=== PATIENT | female | born 1960 | race Caucasian/White ===

== ENCOUNTER 2018-09-01 10:01 | Outpatient (CLI) ==
--- NOTE | 2018-09-01 10:59 | DI ---
EXAM: Lumbar spine three view HISTORY: Pain COMPARISON: None TECHNIQUE: Three views lumbar spine were performed FINDINGS: Sacroiliac joints intact. Sacral arcuate intact. Vertebral bodies normal height. No fra cture. No subluxation. Small multilevel marginal osteophyte formation. Mild multilevel interverteb ral disc space narrowing. Suggestion of facet arthrosis in the lower spine. Atherosclerotic vascula r calcification. IMPRESSION: Chronic discogenic degenerative disease and facet arthrosis.
--- NOTE | 2018-09-01 11:01 | DI ---
EXAM: Left knee four views HISTORY: Knee pain. FINDINGS: General bone density appears grossly normal. There is tricompartment osteoarthritis which is moderate in the medial compartment and slightly less otherwise. There is no osteochondral fragmen tation or fracture. No joint effusion. IMPRESSION: Tricompartment osteoarthritis more noticeable in the medial compartment.
--- NOTE | 2018-09-01 11:24 | DI ---
EXAM: Right knee four views HISTORY: Pain COMPARISON: None TECHNIQUE: Four views right knee were performed FINDINGS: No fracture or dislocation. Moderate tricompartmental osteoarthritis with joint space narr owing and osteophyte formation. Small joint effusion. IMPRESSION: Moderate tricompartmental osteoarthritis.
--- NOTE | 2018-09-01 13:03 | DI ---
EXAM: RIGHT SHOULDER HISTORY: Shoulder pain FINDINGS: Right shoulder three-view. Bone and joint structures are within normal limits. There is no joint dislocation or fracture identified. Bone density and soft tissues are unremarkable. IMPRESSION: Within normal limits.
--- NOTE | 2018-09-01 13:04 | DI ---
EXAM: Thoracic spine three views HISTORY: Pain COMPARISON: None TECHNIQUE: Three views thoracic spine were performed FINDINGS: Vertebral bodies normal height. No fracture. No subluxation. Mild multilevel chronic di scogenic degenerative disease with intervertebral disc space narrowing and marginal osteophyte format ion. IMPRESSION: Mild chronic discogenic degenerative disease.
--- NOTE | 2018-09-01 13:05 | DI ---
EXAM: LEFT SHOULDER HISTORY: Shoulder pain FINDINGS: Left shoulder three-view. Bone and joint structures are within normal limits. There is n o joint dislocation or fracture identified. Bone density and soft tissues are unremarkable. IMPRESSION: Within normal limits.
--- NOTE | 2018-09-01 13:21 | DI ---
EXAM: Right foot three views HISTORY: Pain COMPARISON: None FINDINGS: No fracture or dislocation. Mild osteoarthritis first MTP joint with joint space narrowin g and osteophyte formation. Mild to moderate osteoarthritis midfoot with dorsal spurring. Small cayla ntar and posterior calcaneal spurs. IMPERSSION: 1. Osteoarthritis. 2. Calcaneal spurring.
== END 2018-09-01 10:02 | disposition home or self-care (01) ==
LOC: RAD 10:01
PROVIDERS: ATTEND Internal Medicine
DX: M25.511 Pain in right shoulder (principal); M54.41 Lumbago with sciatica, right side; M25.562 Pain in left knee; M25.561 Pain in right knee; M79.671 Pain in right foot

== ENCOUNTER 2020-10-22 10:43 | Inpatient (IN) ==
[2020-10-22] MEDS ORDERED: SODIUM CHLORIDE 1,000 ML IV STA (11:19)
[2020-10-22] MEDS ORDERED: ZOFRAN 4 MG/2 ML IVP STA (11:19)
[2020-10-22] MEDS ORDERED: PROTONIX IV IVP STA (11:19)
[2020-10-22 11:34] LABS: BASOPHILS # (AUTO) 0.1 K/uL (0-0.2); BASOPHILS % (AUTO) 0.4 % (0.0-3.0); EOSINOPHILS # (AUTO) 0.1 K/ul (0.0-0.7); EOSINOPHILS % (AUTO) 0.5 % (0.0-7.0); HEMOGLOBIN 13.6 g/dl (12.0-16.0); IMMATURE GRANULOCYTE # (AUTO) 0.1 (0.0-1.0); IMMATURE GRANULOCYTE % (AUTO) 0.7 % (0.0-5.0); LYMPHOCYTES # (AUTO) 1.6 K/uL (0.60-3.4); LYMPHOCYTES % (AUTO) 10.9 (10.0-50.0); MEAN CORPUSCULAR HEMOGLOBIN 25.6 pg (27.0-31.0); MEAN CORPUSCULAR HGB CONC 31.6 (31.8-35.4); MONOCYTES # (AUTO) 0.9 K/uL (0.4-2.0); MONOCYTES % (AUTO) 6.2 (0-10); NEUTROPHILS % (AUTO) 81.3 % (42.2-75.2); PLATELET COUNT 347 10^3/uL (140-440); RED BLOOD COUNT 5.31 10^6/ul (4.20-5.40); WHITE BLOOD COUNT 14.73 K/ul (4.6-10.2)
[2020-10-22 11:46] LABS: ALANINE AMINOTRANSFERASE 96.5 U/L (0-35); ALBUMIN 4.47 g/dL (3.5-5.0); ALKALINE PHOSPHATASE 122.4 U/L (53-141); ASPARTATE AMINO TRANSFERASE 75.8 U/L (14-36); BILIRUBIN,TOTAL 0.57 mg/dL (0.2-1.3); BLOOD UREA NITROGEN 22.6 mg/dL (7-17); CALCIUM 9.89 mg/dL (8.4-10.2); CARBON DIOXIDE 30.7 mmol/L (22-30.0); CHLORIDE 103.6 mmol/L (98-107); CREATININE 0.56 mg/dL (0.60-1.30); LIPASE 29.1 U/L (23-300); POTASSIUM 4.38 mmol/L (3.5-5.1); SODIUM 142.1 mmol/L (134.5-145); TOTAL PROTEIN 8.21 g/dL (6.3-8.2)
[2020-10-22 11:48] LABS: BLOOD ALCOHOL < 10.0 mg/dL (0.0-50.0)
--- NOTE | 2020-10-22 12:02 | DI ---
EXAM: Chest one view, frontal view only. HISTORY: Weakness. COMPARISON: None. FINDINGS: The heart size is normal. There is no pulmonary vascular congestion. The lungs are clear . No pleural effusion or pneumothorax is seen. No acute osseous abnormality is identified. IMPRESSION: No acute cardiopulmonary process.
[2020-10-22 12:05] LABS: TROPONIN I < 0.012 ng/ml (0.0000-0.120)
[2020-10-22] MEDS ORDERED: SODIUM CHLORIDE 500 ML IV STA (12:55)
[2020-10-22] MEDS ORDERED: ROCEPHIN 1 GM/50 ML D5W 1 GM/50 ML BAG IV STA (12:58)
[2020-10-22 13:03] LABS: AMPHETAMINE SCREEN,URINE NEGATIVE (NEGATIVE); BARBITURATE SCREEN,URINE NEGATIVE (NEGATIVE); BENZODIAZEPINES SCREEN,URINE NEGATIVE (NEGATIVE); CANNABINOID SCREEN,URINE NEGATIVE (NEGATIVE); COCAIN SCREEN,URINE NEGATIVE (NEGATIVE); METHADONE URINE SCREEN NEGATIVE (NEGATIVE); METHAMPHETAMINES SCREEN,URINE NEGATIVE (NEGATIVE); OPIATE SCREEN,URINE POSITIVE (NEGATIVE); OXYCODONE URINE SCREEN NEGATIVE (NEGATIVE); PHENCYCLIDINE SCREEN,URINE NEGATIVE (NEGATIVE); PROPOXYPHENE URINE SCREEN NEGATIVE (NEGATIVE); TRICYCLIC ANTIDEPRESSANTS URIN NEGATIVE (NEGATIVE)
--- NOTE | 2020-10-22 13:39 | ED.PDOC ---
General ED Provider: Dr. KE GREEN MD Chief Complaint: Nausea/Vomiting Stated Complaint: feeling of weakness x thia am. Time Seen by Provider: 10/22/20 10:47 Mode of Arrival: Walk-In Information Source: Patient Exam Limitations: No limitations Primary Care Provider: SARAH PITTMAN Nursing and Triage Documentation Reviewed and Agree: Yes Does patient meet sepsis criteria?: No System Inflammatory Response Syndrome: Not Applicable Sepsis Protocol: For patient's 13 years and over: Temp is 96.8 and below OR 101 and greater Pulse >90 BPM Resp >20/minute Acutely Altered Mental Status Are patient's symptoms suggestive of a new infection, such as: -Pneumonia -Skin, Soft Tissue -Endocarditis -UTI -Bone, Joint Infection -Implantable Device -Acute Abdominal Infection -Wound Infection -Meningitis -Blood Stream Catheter Infection -Unknown Neurological Complaint Exam Weakness Complaint/Exam Last Known Well: last pm. was treated in this ED for migrainous DUNBAR. minimal DUNBAR today. Onset: Gradual Duration: 3-4 hrs Symptoms Are: Still present Timing: Constant Episodes Lasting: Hours Initial Severity: Mild Current Severity: Mild Character: Reports Lightheaded and Weak Aggravating: Reports Position change Alleviating: Reports None Associated Signs and Symptoms: Reports Nausea Cardiac Risk Factors: Reports Hypertension and Elevated lipids CVA Risk Factors: Reports Hypertension Glascow Coma Scale (see protocol): 15 Nystagmus Present: No Gag Reflex Present: Yes Meningeal Signs Positive: No Focal Weakness: Present None Focal Sensory Loss: Present None Gait: Normal Differential Diagnoses: Hypovolemia, Labyrinthitis, Meniere's, Metabolic abnormalities and Vasovagal reaction Review of Systems Review Of Systems Constitutional: Reports Malaise and Weakness Eyes: Reports No symptoms Ears, Nose, Mouth, Throat: Reports No symptoms Respiratory: Reports No symptoms Cardiac: Reports Lightheadedness GI: Reports Nausea : Reports No symptoms Musculoskeletal: Reports No symptoms Skin: Reports No symptoms Neurological: Reports Headache and Weakness Endocrine: Reports No symptoms Hematologic/Lymphatic: Reports No symptoms All Other Systems: Reviewed and Negative [facility] Female Reproductive History Menstrual Hx Hysterectomy: Yes Physical Exam Physical Exam Appearance: Reports No pain distress and Obese Ill-appearing: None Pain Distress: None Eyes: Reports CHRISTIAN, EOMI and Conjunctiva clear ENT: Reports Ears normal, Nose normal and Oropharynx normal Neck: Supple Respiratory: Reports Airway patent and Breath sounds clear Cardiovascular: Reports RRR, Pulses normal, No rub and No murmur GI/: Reports Soft, Nontender, No masses, Bowel sounds normal and No Organomegaly Musculoskeletal: Reports Normal strength, ROM intact, No edema and No calf tenderness Skin: Reports Warm, Dry and Normal color Neurological: Reports Sensation intact, Motor intact, Reflexes intact, Cranial nerves intact, Alert and Oriented Psychiatric: Reports Depressed Interpretation Radiology Interpretation Radiology Interpretation By: Radiologist Exam Interpreted: Portable CXR Re-Evaluation Re-Evaluation Time of Re-Evaluation: 11:40 Status: Improved Vital Signs Stable: Yes Pain Level: 0 Lungs: Clear Skin: Warm and Dry Neuro: Alert and Oriented X3 CV: RRR Critical Care Note Critical Care Note Total Critical Care Time (mins): 0 Course Course Hematology/Chemistry: 10/22/20 11:32 10/22/20 11:32 Orders, Labs, Meds: Lab Review 10/22/20 10/22/20 10/22/20 11:32 11:32 12:27 WBC 14.73 H RBC 5.31 Hgb 13.6 Hct 43.0 MCV 81.0 MCH 25.6 L MCHC 31.6 L RDW Coeff of Estrellita 15.0 H Plt Count 347 Immature Gran % (Auto) 0.7 Neut % (Auto) 81.3 H Lymph % (Auto) 10.9 [place] % (Auto) 6.2 Eos % (Auto) 0.5 Baso % (Auto) 0.4 Neut # (Auto) 12.0 H Lymph # (Auto) 1.6 [place] # (Auto) 0.9 Eos # (Auto) 0.1 Baso # (Auto) 0.1 Immature Gran # (Auto) 0.1 Sodium 142.1 Potassium 4.38 Chloride 103.6 Carbon Dioxide 30.7 H Anion Gap 12.18 BUN 22.6 H Creatinine 0.56 L Estimated GFR (MDRD) 110.00 BUN/Creatinine Ratio 40.35 Glucose 122.0 H Lactic Acid Calcium 9.89 Total Bilirubin 0.57 AST 75.8 H ALT 96.5 H Alkaline Phosphatase 122.4 Troponin I < 0.012 Total Protein 8.21 H Albumin 4.47 Globulin 3.74 Albumin/Globulin Ratio 1.19 Lipase 29.1 Urine Color Urine Clarity Urine pH Ur Specific [place] Urine Protein Urine Glucose (UA) Urine Ketones Urine Blood Urine Nitrite Urine Bilirubin Urine Urobilinogen Ur Leukocyte Esterase Urine Microscopic RBC Urine Microscopic WBC Ur Squamous Epith Cells Urine Bacteria Urine Opiates Screen Positive H Ur Oxycodone Screen Negative Urine Methadone Screen Negative Ur Propoxyphene Screen Negative Ur Barbiturates Screen Negative U Tricyclic Antidepress Negative Ur Phencyclidine Scrn Negative Ur Amphetamine Screen Negative U Methamphetamines Scrn Negative U Benzodiazepines Scrn Negative Urine Cocaine Screen Negative U Cannabinoids Screen Negative Plasma/Serum Alcohol < 10.0 Adenovirus (PCR) B. pertussis DNA (PCR) B.parapertussis DNA PCR C. pneumoniae DNA (PCR) Coronavirus OC43 (PCR) Coronavirus HKU1 (PCR) Coronavirus 229E (PCR) Coronavirus NL63 (PCR) Human Metapneumovir PCR Influenza Type A (PCR) Influenza B (RT-PCR) M. pneumoniae (PCR) Parainfluenza 1 (PCR) Parainfluenza 2 (PCR) Parainfluenza 3 (PCR) Parainfluenza 4 (PCR) RSV (PCR) Entero/Rhino (PCR) SARS-CoV-2 (PCR) 10/22/20 10/22/20 10/22/20 13:35 17:00 18:33 WBC RBC Hgb Hct MCV MCH MCHC RDW Coeff of Estrellita Plt Count Immature Gran % (Auto) Neut % (Auto) Lymph % (Auto) [place] % (Auto) Eos % (Auto) Baso % (Auto) Neut # (Auto) Lymph # (Auto) [place] # (Auto) Eos # (Auto) Baso # (Auto) Immature Gran # (Auto) Sodium Potassium Chloride Carbon Dioxide Anion Gap BUN Creatinine Estimated GFR (MDRD) BUN/Creatinine Ratio Glucose Lactic Acid 0.76 Calcium Total Bilirubin AST ALT Alkaline Phosphatase Troponin I Total Protein Albumin Globulin Albumin/Globulin Ratio Lipase Urine Color Yellow Urine Clarity Clear Urine pH 6.5 Ur Specific [place] 1.025 Urine Protein Negative Urine Glucose (UA) Negative Urine Ketones Negative Urine Blood Trace-intact H Urine Nitrite Negative Urine Bilirubin Negative Urine Urobilinogen 0.2 Ur Leukocyte Esterase Negative Urine Microscopic RBC 2-5 Urine Microscopic WBC 2-5 Ur Squamous Epith Cells 5-10 Urine Bacteria 1+ Urine Opiates Screen Ur Oxycodone Screen Urine Methadone Screen Ur Propoxyphene Screen Ur Barbiturates Screen U Tricyclic Antidepress Ur Phencyclidine Scrn Ur Amphetamine Screen U Methamphetamines Scrn U Benzodiazepines Scrn Urine Cocaine Screen U Cannabinoids Screen Plasma/Serum Alcohol Adenovirus (PCR) Not detected B. pertussis DNA (PCR) Not detected B.parapertussis DNA PCR Not detected C. pneumoniae DNA (PCR) Not detected Coronavirus OC43 (PCR) Not detected Coronavirus HKU1 (PCR) Not detected Coronavirus 229E (PCR) Not detected Coronavirus NL63 (PCR) Not detected Human Metapneumovir PCR Not detected Influenza Type A (PCR) Not detected Influenza B (RT-PCR) Not detected M. pneumoniae (PCR) Not detected Parainfluenza 1 (PCR) Not detected Parainfluenza 2 (PCR) Not detected Parainfluenza 3 (PCR) Not detected Parainfluenza 4 (PCR) Not detected RSV (PCR) Not detected Entero/Rhino (PCR) Not detected SARS-CoV-2 (PCR) Not detected Orders Category Date Time Status ADMIT PATIENT INPATIENT .TO [facility] (MONITORED BED) ADMISSION 10/22/20 18:56 Active EKG-(ED ONLY) Stat CARDIO 10/22/20 11:19 Completed EKG-(IP & OP ONLY) DAILY CARDIO 10/23/20 06:00 Ordered EKG-(IP & OP ONLY) DAILY CARDIO 10/24/20 06:00 Ordered OXYGEN Routine CARDIO 10/22/20 18:24 Ordered ACTIVITY .BR with BRP CARE 10/22/20 18:23 Active INTAKE & OUTPUT Q8HR CARE 10/22/20 18:23 Active IP: INSERT SALINE LOCK ONCE CARE 10/22/20 18:23 Active STRAIGHT CATH INSERTION ONCE CARE 10/22/20 14:27 Completed TELEMETRY MONITORING TELE CARE 10/22/20 18:31 Active TELEMETRY MONITORING TELE CARE 10/22/20 18:58 Active VITAL SIGNS Q8HR CARE 10/22/20 18:23 Active REGULAR DIET DIETARY 10/22/20 Dinner Ordered ED IV/MEDIPORT/POWERPORT .ONCE EMERGENCY 10/22/20 11:19 Completed BLOOD ALCOHOL Stat LAB 10/22/20 11:32 Completed BLOOD CULTURE (ED ONLY) Stat LAB 10/22/20 12:35 Received CBC W/ AUTO DIFF DAILY@0600 LAB 10/23/20 06:00 Ordered CBC W/ AUTO DIFF DAILY@0600 LAB 10/24/20 06:00 Ordered CBC W/ AUTO DIFF Stat LAB 10/22/20 11:32 Completed COMPREHENSIVE METABOLIC PANEL DAILY@0600 LAB 10/23/20 06:00 Ordered COMPREHENSIVE METABOLIC PANEL DAILY@0600 LAB 10/24/20 06:00 Ordered COMPREHENSIVE METABOLIC PANEL Stat LAB 10/22/20 11:32 Completed DRUG SCREEN, URINE, RAPID Stat LAB 10/22/20 12:27 Completed LACTIC ACID Stat LAB 10/22/20 13:35 Completed LIPASE Stat LAB 10/22/20 11:32 Completed RESPIRATORY PANEL 2.1 (PCR) Stat LAB 10/22/20 18:33 Completed TROPONIN I Q8H LAB 10/23/20 00:30 Ordered TROPONIN I Q8H LAB 10/23/20 09:30 Ordered TROPONIN I Stat LAB 10/22/20 11:32 Completed URINALYSIS C & S IF INDICATED Stat LAB 10/22/20 17:00 Completed URINE CULTURE Stat LAB 10/22/20 17:00 Received 0.9 % Sodium Chloride [Saline Flush] MEDS 10/22/20 11:19 Discontinued 1 syr IVF PRN PRN Acetaminophen [Tylenol] MEDS 10/22/20 18:23 Active 650 mg PO Q8H PRN Amlodipine Besylate [Norvasc] MEDS 10/23/20 09:00 Active 5 mg PO DAILY Atorvastatin Calcium [Lipitor] MEDS 10/23/20 09:00 Active 40 mg PO DAILY Calcium Carbonate/Vitamin D3 [Calcium 500 + Vit D 5 Mcg MEDS 10/23/20 09:00 Active (200 Iu) Tablet] 1 each PO DAILY Ceftriaxone/D5w 1 gm Premix [Rocephin 1 gm/50 ml D5w] MEDS 10/23/20 09:00 Active 1 gm in 50 ml IV DAILY Ceftriaxone/D5w 1 gm Premix [Rocephin 1 gm/50 ml D5w] MEDS 10/22/20 12:58 Disc ontinued 1 gm in 50 ml IV ONCE Citalopram Hydrobromide [Celexa] MEDS 10/23/20 09:00 Active 20 mg PO DAILY Fluticasone/Salmeterol 500/50 [Advair 500-50 Diskus] MEDS 10/22/20 18:31 Act tracy 1 puff IH BID PRN Levothyroxine Sodium [Synthroid] MEDS 10/23/20 06:30 Active 100 mcg PO DAILY@0630 Lorazepam [Ativan] MEDS 10/22/20 18:31 Active 0.5 mg PO BID PRN Meloxicam [Mobic] MEDS 10/22/20 19:00 Active 15 mg PO MoWeFr@0900 Morphine Sulfate [Morphine 2 mg/ml Syringe] MEDS 10/22/20 19:00 Active 2 mg IVP Q8H Ondansetron HCl/Pf [Zofran 4 mg/2 ml] MEDS 10/22/20 11:19 Discontinued 4 mg IVP ONCE STA Ondansetron HCl/Pf [Zofran 4 mg/2 ml] MEDS 10/22/20 20:00 Active 4 mg IVP Q8H Pantoprazole Sodium [Protonix IV] MEDS 10/22/20 11:19 Discontinued 40 mg IVP ONCE STA Pantoprazole Sodium [Protonix] MEDS 10/23/20 06:30 Active 40 mg PO DAILY@0630 Sodium Chloride 0.9% [Sodium Chloride] 1,000 ml MEDS 10/22/20 18:30 Active IV 75 mls/hr Sodium Chloride 0.9% [Sodium Chloride] 1,000 ml MEDS 10/22/20 11:19 Disco ntinued IV BOLUS Sodium Chloride 0.9% [Sodium Chloride] 500 ml MEDS 10/22/20 12:55 Discontinued IV BOLUS RESUSCITATION STATUS Routine OTHERS 10/22/20 18:23 Ordered CHEST, 1V AP ONLY Stat RADS 10/22/20 11:19 Completed Medications Generic Name Dose Route Start Last Admin Trade Name Freq PRN Reason Stop Dose Admin Acetaminophen 650 mg 10/22/20 18:23 Acetaminophen 325 Mg Tablet PO Q8H PRN Mild Pain Amlodipine Besylate 5 mg 10/23/20 09:00 Amlodipine Besylate 5 Mg Tablet PO DAILY [facility] Atorvastatin Calcium 40 mg 10/23/20 09:00 Atorvastatin Calcium 20 Mg Tablet PO DAILY [facility] Calcium/Vitamin D 1 each 10/23/20 09:00 Calcium Carbonate/Vitamin D3 500 Mg/5 Mcg(200iu) 1 Each Tablet PO DAILY [facility] Citalopram Hydrobromide 20 mg 10/23/20 09:00 Citalopram Hydrobromide 20 Mg Tablet PO DAILY [facility] Sodium Chloride 1,000 mls @ 75 mls/hr 10/22/20 18:30 Sodium Chloride IV .[id number] [facility] CEFTRIAXONE/D5W 1 GM PREMIX 1 gm in 50 mls @ 75 mls/hr 10/23/20 09:00 Rocephin 1 Gm/50 Ml D5w IV 10/26/20 08:59 DAILY ADI Levothyroxine Sodium 100 mcg 10/23/20 06:30 Levothyroxine Sodium 100 Mcg Tablet PO DAILY@0630 ADI Lorazepam 0.5 mg 10/22/20 18:31 Lorazepam 0.5 Mg Tablet PO BID PRN Anxiety Meloxicam 15 mg 10/22/20 19:00 Meloxicam 7.5 Mg Tablet PO MoWeFr@0900 ADI Morphine Sulfate 2 mg 10/22/20 19:00 Morphine Sulfate 2 Mg/Ml Syringe IVP Q8H ADI Ondansetron HCl 4 mg 10/22/20 20:00 Ondansetron Hcl/Pf 4 Mg/2 Ml Sdv IVP Q8H ADI Pantoprazole Sodium 40 mg 10/23/20 06:30 Pantoprazole Sodium 40 Mg Tablet. PO DAILY@0630 ADI Fluticasone/Salmeterol 1 puff 10/22/20 18:31 Fluticasone/Salmeterol 500/50 Diskus IH BID PRN sob Discontinued Medications Generic Name Dose Route Start Last Admin Trade Name Freq PRN Reason Stop Dose Admin Sodium Chloride 1,000 mls @ 1,000 mls/hr 10/22/20 11:19 10/22/20 12:21 Sodium Chloride IV 10/22/20 12:18 1,000 mls/hr BOLUS STA Administration Sodium Chloride 500 mls @ 500 mls/hr 10/22/20 12:55 10/22/20 13:07 Sodium Chloride IV 10/22/20 13:54 500 mls/hr BOLUS STA Administration CEFTRIAXONE/D5W 1 GM PREMIX 1 gm in 50 mls @ 75 mls/hr 10/22/20 12:58 10/22/20 13:07 Rocephin 1 Gm/50 Ml D5w IV 10/22/20 13:37 75 mls/hr ONCE STA Administration Ondansetron HCl 4 mg 10/22/20 11:19 10/22/20 12:11 Ondansetron Hcl/Pf 4 Mg/2 Ml Sdv IVP 10/22/20 11:20 4 mg ONCE STA Administration Pantoprazole Sodium 40 mg 10/22/20 11:19 10/22/20 12:10 Pantoprazole Sodium 40 Mg Vial IVP 10/22/20 11:20 40 mg ONCE STA Administration Sodium Chloride 1 syr 10/22/20 11:19 10/22/20 12:11 0.9% Sodium Chloride 10 Ml Disp.Syrin IVF 1 syr PRN PRN Administration To flush IV Vital Signs: Temp Pulse Resp BP Pulse Ox 10/22/20 10:44 96.8 F L 62 18 176/77 H 93 L Discharge Plan Discharge Patient Disposition: HOME SELF-CARE Discharge Problem: Weakness generalized Instructions: Weakness (ED) Prescriptions: No Action atorvastatin 40 mg Tablet 40 mg PO DAILY RF: 0 citalopram 40 mg tablet 20 mg PO DAILY RF: 0 meloxicam 15 mg tablet 15 mg PO 3 TIMES PER WEEK RF: 0 amlodipine 5 mg tablet 5 mg PO DAILY RF: 0 calcium carbonate-vitamin D3 [Calcium + D] 600 mg(1,500mg) -200 unit Tablet 1 tab PO DAILY RF: 0 levothyroxine 100 mcg tablet 100 mcg PO DAILY RF: 0 lorazepam 0.5 mg tablet 0.5 mg PO BID PRN (Reason: Anxiety) RF: 0 meclizine 25 mg Tablet 25 mg PO TID PRN (Reason: inner ear) RF: 0 pantoprazole 40 mg tablet,delayed release (DR/EC) 40 mg PO DAILY RF: 0 cyanocobalamin (vitamin B-12) [Cyanoject-30] 1,000 mcg/mL Solution 1,000 mcg IM DIRECTED RF: 0 fluticasone propion-salmeterol [Advair Diskus] 500-50 mcg/dose blister with device 1 inh INHALATION BID PRN (Reason: asthma) RF: 0 ondansetron HCl [Zofran] 4 mg tablet 4 mg PO Q8H PRN (Reason: nausea and vomiting) Qty: 14 RF: 0 acetaminophen 325 mg capsule 650 mg PO Q8HR Qty: 30 RF: 0 hydrocodone-acetaminophen 5-325 mg tablet 1 tab PO BID PRN (Reason: pain) Qty: 4 RF: 0 ED Provider: KE GREEN Condition: Good Physician Progress Note: []Pt was d/w Dr Pittman: admit to Observation/telemetry.
[2020-10-22 17:30] LABS: BILIRUBIN,URINE Negative (NEGATIVE); CLARITY,URINE Clear (CLEAR); COLOR,URINE Yellow (YELLOW); GLUCOSE, URINE (UA) Negative (NEGATIVE); KETONES,URINE Negative (NEGATIVE); LEUKOCYTE ESTERASE ,URINE Negative (NEGATIVE); NITRITE,URINE Negative (NEGATIVE); PH,URINE 6.5 (5-9); PROTEIN,URINE Negative (NEGATIVE); URINE, BLOOD Trace-intact (NEGATIVE); UROBILINOGEN,URINE 0.2 (0.2)
[2020-10-22 17:34] LABS: BACTERIA,URINE 1+ (NOT PRESENT)
[2020-10-22] MEDS ORDERED: ADVAIR 500-50 DISKUS IH PRN (18:31)
[2020-10-22] MEDS ORDERED: ATIVAN PO PRN (18:31)
[2020-10-22] MEDS ORDERED: MOBIC PO SCH (19:00)
[2020-10-22 22:27] VITALS: BMI 46.2
[2020-10-22] MEDS: SODIUM CHLORIDE 1,000 ML IV SCH (23:24)
[2020-10-22] MEDS: ZOFRAN 4 MG/2 ML IVP SCH (23:25)
[2020-10-22] MEDS: TYLENOL PO PRN (23:25)
[2020-10-23] MEDS: MORPHINE 2 MG/ML SYRINGE IVP SCH ×4 (00:32→20:19)
[2020-10-23 05:17] LABS: BASOPHILS # (AUTO) 0.1 K/uL (0-0.2); BASOPHILS % (AUTO) 0.4 % (0.0-3.0); EOSINOPHILS # (AUTO) 0.1 K/ul (0.0-0.7); EOSINOPHILS % (AUTO) 1.1 % (0.0-7.0); HEMATOCRIT 39.7 % (37.0-47.0); HEMOGLOBIN 12.4 g/dl (12.0-16.0); IMMATURE GRANULOCYTE # (AUTO) 0.1 (0.0-1.0); IMMATURE GRANULOCYTE % (AUTO) 0.6 % (0.0-5.0); LYMPHOCYTES # (AUTO) 2.3 K/uL (0.60-3.4); LYMPHOCYTES % (AUTO) 17.7 (10.0-50.0); MEAN CORPUSCULAR HEMOGLOBIN 25.7 pg (27.0-31.0); MEAN CORPUSCULAR HGB CONC 31.2 (31.8-35.4); MEAN CORPUSCULAR VOLUME 82.4 fl (81.0-99.0); MONOCYTES % (AUTO) 7.3 (0-10); NEUTROPHILS # (AUTO) 9.7 K/ul (2.0-6.9); NEUTROPHILS % (AUTO) 72.9 % (42.2-75.2); PLATELET COUNT 323 10^3/uL (140-440); RDW COEFFICIENT OF VARIATION 15.1 % (11.6-14.8); RED BLOOD COUNT 4.82 10^6/ul (4.20-5.40); WHITE BLOOD COUNT 13.24 K/ul (4.6-10.2)
[2020-10-23 05:32] LABS: ALANINE AMINOTRANSFERASE 69.8 U/L (0-35); ALBUMIN 3.95 g/dL (3.5-5.0); ALKALINE PHOSPHATASE 108.1 U/L (53-141); ASPARTATE AMINO TRANSFERASE 36.4 U/L (14-36); BILIRUBIN,TOTAL 0.53 mg/dL (0.2-1.3); BLOOD UREA NITROGEN 18.8 mg/dL (7-17); CALCIUM 8.94 mg/dL (8.4-10.2); CARBON DIOXIDE 30.5 mmol/L (22-30.0); CHLORIDE 103.5 mmol/L (98-107); CREATININE 0.63 mg/dL (0.60-1.30); GLUCOSE 115.8 mg/dL (74-106); POTASSIUM 4.07 mmol/L (3.5-5.1); SODIUM 141.4 mmol/L (134.5-145); TOTAL PROTEIN 7.29 g/dL (6.3-8.2)
[2020-10-23] MEDS: PROTONIX PO SCH (05:55)
[2020-10-23] MEDS: ZOFRAN 4 MG/2 ML IVP SCH ×3 (05:55→20:16)
[2020-10-23] MEDS: SYNTHROID PO SCH (05:55)
[2020-10-23] MEDS: CALCIUM 500 + VIT D 5 MCG (200 IU) TABLET PO SCH (08:23)
[2020-10-23] MEDS: NORVASC PO SCH (08:23)
[2020-10-23] MEDS: LIPITOR PO SCH (08:23)
[2020-10-23] MEDS: ROCEPHIN 1 GM/50 ML D5W 1 GM/50 ML BAG IV SCH (08:50)
[2020-10-23] MEDS ORDERED: CELEXA PO SCH (09:00)
[2020-10-23] MEDS: DECADRON IM SCH (13:03)
[2020-10-23] MEDS: SODIUM CHLORIDE 1,000 ML IV SCH (13:08)
[2020-10-23] MEDS: TORADOL IVP SCH ×2 (13:23→20:16)
[2020-10-23] MEDS: TYLENOL PO PRN (16:09)
[2020-10-23] MEDS: CELEXA PO SCH (20:17)
[2020-10-24] MEDS: SODIUM CHLORIDE 1,000 ML IV SCH ×2 (03:05→17:07)
[2020-10-24] MEDS: MORPHINE 2 MG/ML SYRINGE IVP SCH (03:42)
[2020-10-24] MEDS: TORADOL IVP SCH ×3 (04:44→21:05)
[2020-10-24] MEDS: ZOFRAN 4 MG/2 ML IVP SCH (04:44)
[2020-10-24] MEDS: SYNTHROID PO SCH (05:39)
[2020-10-24] MEDS: PROTONIX PO SCH (05:39)
[2020-10-24 05:41] LABS: BASOPHILS % (AUTO) 0.3 % (0.0-3.0); EOSINOPHILS % (AUTO) 0.2 % (0.0-7.0); HEMATOCRIT 38.8 % (37.0-47.0); HEMOGLOBIN 12.4 g/dl (12.0-16.0); IMMATURE GRANULOCYTE # (AUTO) 0.1 (0.0-1.0); IMMATURE GRANULOCYTE % (AUTO) 0.5 % (0.0-5.0); LYMPHOCYTES # (AUTO) 1.9 K/uL (0.60-3.4); LYMPHOCYTES % (AUTO) 14.9 (10.0-50.0); MEAN CORPUSCULAR HEMOGLOBIN 25.7 pg (27.0-31.0); MEAN CORPUSCULAR VOLUME 80.5 fl (81.0-99.0); MONOCYTES # (AUTO) 0.8 K/uL (0.4-2.0); MONOCYTES % (AUTO) 6.5 (0-10); NEUTROPHILS # (AUTO) 9.9 K/ul (2.0-6.9); NEUTROPHILS % (AUTO) 77.6 % (42.2-75.2); PLATELET COUNT 321 10^3/uL (140-440); RDW COEFFICIENT OF VARIATION 14.6 % (11.6-14.8); RED BLOOD COUNT 4.82 10^6/ul (4.20-5.40); WHITE BLOOD COUNT 12.75 K/ul (4.6-10.2)
[2020-10-24 05:53] LABS: ALANINE AMINOTRANSFERASE 52.6 U/L (0-35); ALBUMIN 3.91 g/dL (3.5-5.0); ALKALINE PHOSPHATASE 103.8 U/L (53-141); ASPARTATE AMINO TRANSFERASE 26.1 U/L (14-36); BILIRUBIN,TOTAL 0.55 mg/dL (0.2-1.3); BLOOD UREA NITROGEN 16.5 mg/dL (7-17); CALCIUM 8.95 mg/dL (8.4-10.2); CARBON DIOXIDE 28.9 mmol/L (22-30.0); CREATININE 0.51 mg/dL (0.60-1.30); GLUCOSE 110.2 mg/dL (74-106); POTASSIUM 4.06 mmol/L (3.5-5.1); SODIUM 139.1 mmol/L (134.5-145); TOTAL PROTEIN 7.24 g/dL (6.3-8.2)
[2020-10-24 06:11] LABS: ERYTHROCYTE SEDIMENTATION RATE 26 mm/hr (0-20)
[2020-10-24] MEDS ORDERED: ZOFRAN 4 MG/2 ML IVP PRN (08:09)
--- NOTE | 2020-10-24 08:44 | PCM.PROG ---
Attending Provider: ATTENDING PROVIDER: Dr. SARAH PITTMAN This patient is seen with Wendy Lorenzana, Nurse Practitioner. DATE OF SERVICE: 10/24/20 SUBJECTIVE: This 60 year old /WHITE F was hospitalized 10/22/20. The patient is resting comfortably. Still with persistent headache. No nausea. No fever. REVIEW OF SYSTEMS: CONSTITUTIONAL: No night sweats. No fatigue, malaise, lethargy. No fever or chills. Weakness. HEENT: Eyes: No visual changes. No eye pain. No eye discharge. ENT: No runny nose. No epistaxis. No sinus pain. No odynophagia. No congestion. RESPIRATORY: No cough, no congestion. No hemoptysis. No shortness of breath. CARDIOVASCULAR: No angina symptoms. No CHF symptoms. No atypical chest pain for CAD. No palpitations. No orthopnea.. GASTROINTESTINAL: No abdominal pain. No nausea or vomiting. No diarrhea or constipation. No hematemesis. No hematochezia. GENITOURINARY: No urgency. No frequency. No dysuria. No hematuria. No obstructive symptoms. No discharge. No pain. No significant abnormal bleeding. MUSCULOSKELETAL: No musculoskeletal pain; no joint swelling. NEUROLOGICAL: Awake, alert, oriented to time, place and person. Headache. No neck pain. No syncope. No seizures. No dizziness. PSYCHIATRIC: Not anxious. No depression. No suicidal thoughts. No homicidal thoughts. SKIN: No rash. No lesions. No wounds. ENDOCRINE: No unexplained weight loss. No weight gain. HEMATOLOGIC/LYMPHATIC: No anemia. No purpura. No petechiae. No prolonged or e xcessive bleeding. No palpable lymph nodes. PHYSICAL EXAMINATION: GENERAL: The patient is awake, alert and oriented, sitting in bed in no distress. VITAL SIGNS: Temperature 97.7 F, Pulse 55, Respiratory Rate 18, BP 144/72, Pulse Ox 95% HEENT: Head normocephalic, atraumatic. Eyes: Extraocular muscles are intact. Pupils are equal, round and reactive to light and accommodation. Ears: No lesions. Nose appeared normal. Throat: No exudate or erythema. NECK: Supple. No JVD, no carotid bruit. No lymphadenopathy or thyromegaly. LUNGS: Clear to auscultation. Percussion note normal. Chest symmetrical. HEART: S1, S2, no S3. No murmurs. No cyanosis or clubbing. No ascites. Pulses: Dorsalis pedis and posterior tibial pulses +1 to +2 both sides. ABDOMEN: Soft. Non-tender. Bowel sounds active. No CVA tenderness. No mass felt. EXTREMITIES: No edema. Full range of motion of all extremities, equal. NEUROLOGIC: No focal deficit. Cranial nerves II through XII are grossly intact. No headache. No double vision. SKIN: Not dry. Intact. Turgor-normal. LYMPHATIC: No palpable lymph nodes/no lymphedema. MUSCULOSKELETAL: Normal joints with no swelling. Muscle tone is normal. LAB REVIEW: 10/24/20 05:00 10/24/20 05:00 10/24/20 05:00: ESR 26 H 10/24/20 05:00: Sodium 139.1, Potassium 4.06, Chloride 104.0, Carbon Dioxide 28.9, Anion Gap 10.26, BUN 16.5, Creatinine 0.51 L, Estimated GFR (MDRD) 123.00, BUN/Creatinine Ratio 32.35, Glucose 110.2 H, Calcium 8.95, Total Bilirubin 0.55, AST 26.1, ALT 52.6 H, Alkaline Phosphatase 103.8, Total Protein 7.24, Albumin 3.91, Globulin 3.33, Albumin/Globulin Ratio 1.17 10/24/20 05:00: WBC 12.75 H, RBC 4.82, Hgb 12.4, Hct 38.8, MCV 80.5 L, MCH 25.7 L, MCHC 32.0, RDW Coeff of Estrellita 14.6, Plt Count 321, Immature Gran % (Auto) 0.5, Neut % (Auto) 77.6 H, Lymph % (Auto) 14.9, [place] % (Auto) 6.5, Eos % (Auto) 0.2, Baso % (Auto) 0.3, Neut # (Auto) 9.9 H, Lymph # (Auto) 1.9, [place] # (Auto) 0.8, Eos # (Auto) 0.0, Baso # (Auto) 0.0, Immature Gran # (Auto) 0.1 ASSESSMENT: Please see below. 1. Headache 2. Generalized weakness 3. Abnormal U/A 4. Sinus drainage 5. Nausea PLAN: 1. Sudafed once daily 2. Zofran PRN Plan and coordination of the patient's care discussed in the presence of Trestle Builder and nurse. SCRIBED BY: ROLAND PAL [employer] scribed while in presence of service performed by Dr. Pittman/Wendy Lorenzana APRN on 10/24/20 ([id number])
[2020-10-24] MEDS: SUDAFED PO SCH (09:13)
[2020-10-24] MEDS: LIPITOR PO SCH (09:13)
[2020-10-24] MEDS: NORVASC PO SCH (09:13)
[2020-10-24] MEDS: CELEXA PO SCH ×2 (09:14→21:05)
[2020-10-24] MEDS: CALCIUM 500 + VIT D 5 MCG (200 IU) TABLET PO SCH (09:14)
[2020-10-24] MEDS: DECADRON IM SCH (09:17)
[2020-10-24] MEDS: ROCEPHIN 1 GM/50 ML D5W 1 GM/50 ML BAG IV SCH (09:34)
--- NOTE | 2020-10-24 13:51 | PN ---
DATE OF SERVICE: 10/22/20 - ADMIT NOTE SUBJECTIVE: 60-year-old white female came to the emergency room with generalized weakness. The patient was seen in the emergency room on 10/21/20 and was given Morphine Sulfate and a couple of pain killers and sent home with [place]. The patient didn't feel good; in fact, she continued to have a headache, which was a different kind, more frontal, felt extremely tired and weak, flu-type of symptoms which started, according to the patient after she had the first shot of Covid-19 which was 10/16/20. All the lab tests done in the Emergency Room were negative. Cardiac workup was negative. PHYSICAL EXAMINATION: (Entirely negative) HEENT: Head normocephalic, atraumatic. Eyes: Extraocular muscles are intact. Pupils are equal, round and reactive to light and accommodation. Ears: No lesions. Nose appeared normal. Throat: No exudate or erythema. NECK: Supple. No JVD, no carotid bruit. No lymphadenopathy or thyromegaly. LUNGS: Clear to auscultation. Percussion note normal. Chest symmetrical. HEART: S1, S2, no S3. No murmurs. No cyanosis or clubbing. No ascites. Pulses: Dorsalis pedis and posterior tibial pulses +1 to +2 bilaterally. ABDOMEN: Soft. Nontender. Bowel sounds active. No CVA tenderness. No mass felt. EXTREMITIES: No edema. Full range of motion of all extremities, equal. NEUROLOGIC: No focal deficit. Cranial nerves II through XII are grossly intact. No headache. No double vision. SKIN: Not dry. Intact. Turgor - normal. LYMPHATIC: No palpable lymph nodes/no lymphedema. MUSCULOSKELETAL: Normal joints with no swelling. Muscle tone is normal. PLAN: 1. Admit the patient with IV fluids. 2. Continue most of her medications. 3. To be given Morphine Sulfate. 4. Rocephin to be given for possibility of UTI and also sinusitis. It is to be noted that the patient had stopped Citalopram a couple of weeks ago and then she had restarted it recently. Migraine was under control but according to the patient, Covid-19 shot after receiving it she had migraine type of headache the following day and then it reoccurred again after 2 to 3 days. The headache she has now is different than her migraine. CT scan of the head on 10/21/20 was negative. TIME SPENT: More than 30 minutes. Plan and coordination of the patient's care discussed in the presence of nurse. ADDENDUM: The patient was Covid-19 negative. Troponin was negative. MTDD
--- NOTE | 2020-10-24 14:09 | PN ---
DATE OF SERVICE: 10/23/20 SUBJECTIVE: The patient in Room 102 Emergency Room, hospitalized under observation with history of having headache, extreme weakness and was seen and examined in the emergency room the day prior to hospitalization here this time. She was sent home after being given Morphine Sulfate and [place] for her migraine. According to the patient it all started after the patient had shot of Covid vaccine (last Saturday). After that she has been feeling weak and tired with onset of migraines which lasted a couple of days now. She has sinus type of headaches, dizziness and weakness. All the labs are normal. PHYSICAL EXAMINATION: (Entirely negative) VITAL SIGNS: Temperature 97.6, pulse 61, respiratory rate 16, blood pressure 129/74, pulse ox 95%. The patient's BMI 46, morbidly obese. HEENT: Head normocephalic, atraumatic. Eyes: Extraocular muscles are intact. Pupils are equal, round and reactive to light and accommodation. Ears: No lesions. Nose appeared normal. Throat: No exudate or erythema. NECK: Supple. No JVD, no carotid bruit. No lymphadenopathy or thyromegaly. LUNGS: Clear to auscultation. Percussion note normal. Chest symmetrical. HEART: S1, S2, no S3. No murmurs. No cyanosis or clubbing. No ascites. Pulses: Dorsalis pedis and posterior tibial pulses +1 to +2 bilaterally. ABDOMEN: Soft. Nontender. Bowel sounds active. No CVA tenderness. No mass felt. EXTREMITIES: No edema. Full range of motion of all extremities, equal. NEUROLOGIC: No focal deficit. Cranial nerves II through XII are grossly intact. No headache. No double vision. SKIN: Not dry. Intact. Turgor - normal. LYMPHATIC: No palpable lymph nodes/no lymphedema. MUSCULOSKELETAL: Normal joints with no swelling. Muscle tone is normal. LABS: Hemoglobin 12.4, hematocrit 39, WBC 13,000, normal differential. Creatinine 0.6, BUN 18, potassium 4. ASSESSMENT/PLAN: Weakness and fatigue type of symptoms along with frontal type of headache, etiology unknown, could be viral syndrome. Covid test was negative. It all started after Covid-19 first dose, could be reaction to Moderna virus vaccine. The patient is going to be given 1 cc Decadron along with Toradol 30 IV along with Zofran because of nausea. CONDITION: Stable. TIME SPENT: More than 30 minutes. Plan and coordination of the patient's care discussed in the presence of nurse. [place]
[2020-10-24] MEDS: TYLENOL PO PRN (17:07)
[2020-10-25 05:12] LABS: BASOPHILS # (AUTO) 0.1 K/uL (0-0.2); BASOPHILS % (AUTO) 0.5 % (0.0-3.0); EOSINOPHILS # (AUTO) 0.1 K/ul (0.0-0.7); HEMATOCRIT 38.8 % (37.0-47.0); HEMOGLOBIN 12.5 g/dl (12.0-16.0); IMMATURE GRANULOCYTE # (AUTO) 0.1 (0.0-1.0); IMMATURE GRANULOCYTE % (AUTO) 0.6 % (0.0-5.0); LYMPHOCYTES # (AUTO) 2.8 K/uL (0.60-3.4); LYMPHOCYTES % (AUTO) 20.3 (10.0-50.0); MEAN CORPUSCULAR HEMOGLOBIN 26.2 pg (27.0-31.0); MEAN CORPUSCULAR HGB CONC 32.2 (31.8-35.4); MEAN CORPUSCULAR VOLUME 81.3 fl (81.0-99.0); MONOCYTES # (AUTO) 1.1 K/uL (0.4-2.0); MONOCYTES % (AUTO) 8.3 (0-10); NEUTROPHILS # (AUTO) 9.4 K/ul (2.0-6.9); NEUTROPHILS % (AUTO) 69.3 % (42.2-75.2); PLATELET COUNT 296 10^3/uL (140-440); RDW COEFFICIENT OF VARIATION 14.7 % (11.6-14.8); RED BLOOD COUNT 4.77 10^6/ul (4.20-5.40); WHITE BLOOD COUNT 13.58 K/ul (4.6-10.2)
[2020-10-25 05:24] LABS: ALANINE AMINOTRANSFERASE 42.3 U/L (0-35); ALBUMIN 3.68 g/dL (3.5-5.0); ALKALINE PHOSPHATASE 113.6 U/L (53-141); ASPARTATE AMINO TRANSFERASE 21.9 U/L (14-36); BILIRUBIN,TOTAL 0.37 mg/dL (0.2-1.3); BLOOD UREA NITROGEN 16.4 mg/dL (7-17); CALCIUM 8.72 mg/dL (8.4-10.2); CARBON DIOXIDE 31.4 mmol/L (22-30.0); CHLORIDE 103.9 mmol/L (98-107); CREATININE 0.59 mg/dL (0.60-1.30); GLUCOSE 105.9 mg/dL (74-106); POTASSIUM 4.05 mmol/L (3.5-5.1); SODIUM 140.5 mmol/L (134.5-145); TOTAL PROTEIN 6.95 g/dL (6.3-8.2)
[2020-10-25] MEDS: SODIUM CHLORIDE 1,000 ML IV SCH (05:34)
[2020-10-25] MEDS: PROTONIX PO SCH (05:34)
[2020-10-25] MEDS: TORADOL IVP SCH (05:34)
[2020-10-25] MEDS: SYNTHROID PO SCH (05:34)
[2020-10-25 05:44] LABS: ERYTHROCYTE SEDIMENTATION RATE 21 mm/hr (0-20)
[2020-10-25 05:50] VITALS: BP 142/73; TEMP 97.7
[2020-10-25] MEDS ORDERED: FIORICET PO STA (07:59)
--- NOTE | 2020-10-25 08:18 | PCM.PROG ---
Attending Provider: ATTENDING PROVIDER: Dr. SARAH PITTMAN This patient is seen with Wendy Lorenzana, Nurse Practitioner. DATE OF SERVICE: 10/25/20 SUBJECTIVE: This 60 year old /WHITE F was hospitalized 10/22/20. The patient is resting comfortably. Headache somewhat better. Thinks the Sudifed has helped. Ready to be discharged. Eating well. REVIEW OF SYSTEMS: CONSTITUTIONAL: No night sweats. No fatigue, malaise, lethargy. No fever or chills. HEENT: Eyes: No visual changes. No eye pain. No eye discharge. ENT: No runny nose. No epistaxis. No sinus pain. No odynophagia. No congestion. RESPIRATORY: No cough, no congestion. No hemoptysis. No shortness of breath. CARDIOVASCULAR: No angina symptoms. No CHF symptoms. No atypical chest pain for CAD. No palpitations. No orthopnea.. GASTROINTESTINAL: No abdominal pain. No nausea or vomiting. No diarrhea or constipation. No hematemesis. No hematochezia. GENITOURINARY: No urgency. No frequency. No dysuria. No hematuria. No obstructive symptoms. No discharge. No pain. No significant abnormal bleeding. MUSCULOSKELETAL: No musculoskeletal pain; no joint swelling. NEUROLOGICAL: Awake, alert, oriented to time, place and person. Headache. No neck pain. No syncope. No seizures. No dizziness. PSYCHIATRIC: Not anxious. No depression. No suicidal thoughts. No homicidal thoughts. SKIN: No rash. No lesions. No wounds. ENDOCRINE: No unexplained weight loss. No weight gain. HEMATOLOGIC/LYMPHATIC: No anemia. No purpura. No petechiae. No prolonged or excessive bleeding. No palpable lymph nodes. PHYSICAL EXAMINATION: GENERAL: The patient is awake, alert and oriented, lying/sitting in bed in no distress. VITAL SIGNS: Temperature 97.7 F, Pulse 58, Respiratory Rate 16, BP 142/73, Pulse Ox 96% HEENT: Head normocephalic, atraumatic. Eyes: Extraocular muscles are intact. Pupils are equal, round and reactive to light and accommodation. Ears: No lesions. Nose appeared normal. Throat: No exudate or erythema. NECK: Supple. No JVD, no carotid bruit. No lymphadenopathy or thyromegaly. LUNGS: Clear to auscultation. Percussion note normal. Chest symmetrical. HEART: S1, S2, no S3. No murmurs. No cyanosis or clubbing. No ascites. Pulses: Dorsalis pedis and posterior tibial pulses +1 to +2 both sides. ABDOMEN: Soft. Non-tender. Bowel sounds active. No CVA tenderness. No mass felt. EXTREMITIES: No edema. Full range of motion of all extremities, equal. NEUROLOGIC: No focal deficit. Cranial nerves II through XII are grossly intact. No headache. No double vision. SKIN: Not dry. Intact. Turgor-normal. LYMPHATIC: No palpable lymph nodes/no lymphedema. MUSCULOSKELETAL: Normal joints with no swelling. Muscle tone is normal. LAB REVIEW: 10/25/20 04:55 10/25/20 04:55 10/25/20 04:55: ESR 21 H 10/25/20 04:55: Sodium 140.5, Potassium 4.05, Chloride 103.9, Carbon Dioxide 31.4 H, Anion Gap 9.25, BUN 16.4, Creatinine 0.59 L, Estimated GFR (MDRD) 104.00, BUN/Creatinine Ratio 27.79, Glucose 105.9, Calcium 8.72, Total Bilirubin 0.37, AST 21.9, ALT 42.3 H, Alkaline Phosphatase 113.6, Total Protein 6.95, Albumin 3.68, Globulin 3.27, Albumin/Globulin Ratio 1.12 10/25/20 04:55: WBC 13.58 H, RBC 4.77, Hgb 12.5, Hct 38.8, MCV 81.3, MCH 26.2 L, MCHC 32.2, RDW Coeff of Estrellita 14.7, Plt Count 296, Immature Gran % (Auto) 0.6, Neut % (Auto) 69.3, Lymph % (Auto) 20.3, [place] % (Auto) 8.3, Eos % (Auto) 1.0, Baso % (Auto) 0.5, Neut # (Auto) 9.4 H, Lymph # (Auto) 2.8, [place] # (Auto) 1.1, Eos # (Auto) 0.1, Baso # (Auto) 0.1, Immature Gran # (Auto) 0.1 ASSESSMENT: Please see below. 1. Headache 2. UTI 3. Chronic sinusitis 4. Generalized weakness. PLAN: 1. Discharge home 2. Claritin D 12 hours, one daily 3. Omnicef 300mg BID for 10 days 4. Continue Flonase 5. Fioricet one to two Q 5 hours PRN 6. Followup in the office next weeks. Plan and coordination of the patient's care discussed in the presence of Meat Washer and nurse. SCRIBED BY: Gilbert MENSAHist scribed while in presence of service performed by Dr. Pittman/Wendy Lorenzana APRN on 10/25/20 ([id number])
[2020-10-25] MEDS: DECADRON IM SCH (08:28)
[2020-10-25] MEDS: CALCIUM 500 + VIT D 5 MCG (200 IU) TABLET PO SCH (08:29)
[2020-10-25] MEDS: CELEXA PO SCH (08:29)
[2020-10-25] MEDS: SUDAFED PO SCH (08:30)
[2020-10-25] MEDS: LIPITOR PO SCH (08:30)
[2020-10-25] MEDS: NORVASC PO SCH (08:30)
--- NOTE | 2020-10-25 08:33 | HP ---
DATE OF SERVICE: 10/22/20 REASON FOR HOSPITALIZATION/HISTORY OF PRESENT ILLNESS: This is a 60-year-old white female who presents to the emergency room with nausea, vomiting and weakness this morning. She was at the senior living on 10/21 with persistent headache for one week. PAST MEDICAL HISTORY: Anxiety TMJ Osteoarthritis Morbid obesity Bronchial asthma LVH Hypertension Fatty liver Diabetes mellitus Type 2 Bilateral carpal tunnel syndrome Vitamin D deficiency Depression - takes Celexa B12 deficiency GERD Bilateral knee pain Hypothyroidism Dyslipidemia History of both neck and axillary lymphadenopathy which is followed by Dr. Tejeda and Dr. Rubin. PAST SURGICAL HISTORY: The patient had a colonoscopy and endoscopy in 2019 Last mammogram was 03/31 at [facility] REVIEW OF SYSTEMS: CONSTITUTIONAL: Weakness. No night sweats. No fatigue, malaise, lethargy. No fever or chills. HEENT: Eyes: No visual changes. No eye pain. No eye discharge. ENT: No runny nose. No epistaxis. No sinus pain. No sore throat. No odynophagia. No ear pain. No congestion. RESPIRATORY: No cough, no congestion. No hemoptysis. No shortness of breath. CARDIOVASCULAR: No angina symptoms. No CHF symptoms. No atypical chest pain for CAD. No palpitations. No PND. No orthopnea. GASTROINTESTINAL: No abdominal pain. Nausea, vomiting. No diarrhea or constipation. No hematemesis. No hematochezia. GENITOURINARY: No urgency. No frequency. No dysuria. No hematuria. No obstructive symptoms. No discharge. No pain. No significant abnormal bleeding. MUSCULOSKELETAL: No musculoskeletal pain. No joint swelling. No arthritis. NEUROLOGICAL: Headache. No neck pain. No syncope. No seizures. No dizziness. PSYCHIATRIC: Not anxious. No depression. No suicidal thoughts. No homicidal thoughts. SKIN: No rash. No lesions. No wounds. ENDOCRINE: No unexplained weight loss. No weight gain. HEMATOLOGIC/LYMPHATIC: No anemia. No purpura. No petechiae. No prolonged or excessive bleeding. No palpable lymph nodes. PERSONAL/FAMILY/SOCIAL HISTORY: She is , nonsmoker, no alcohol or ilicit drug use. MEDICATIONS: Pantoprazole 40 mg p.o. daily Cyanocobalamin 1,000 mcg IM as directed Amlodipine 5 mg p.o. daily Atorvastatin 40 mg p.o. daily Fluticasone 1 INH b.i.d. p.r.n. Meclizine 25 mg p.o. t.i.d. p.r.n. Lorazepam 0.5 mg p.o. b.i.d. p.r.n. Ondansetron 4 mg p.o. q.8h p.r.n. Citalopram 20 mg p.o. b.i.d. Levothyroxine 100 mcg p.o. daily Calcium Carbonate Vitamin D3 one tablet p.o. daily Meloxicam 15 mg p.o. three times a week Acetaminophen 650 mg p.o. q8hr p.r.n. Hydrocodone-Acetaminophen 5-325 one tab p.o. b.i.d. p.r.n. ALLERGIES: TRAMADOL PHYSICAL EXAMINATION: HEENT: Head normocephalic, atraumatic. Eyes: Extraocular muscles are intact. Pupils are equal, round and reactive to light and accommodation. Ears: No lesions. Nose appeared normal. Throat: No exudate or erythema. NECK: Supple. No JVD, no carotid bruit. No lymphadenopathy or thyromegaly. LUNGS: Diminished breath sounds bilaterally otherwise normal. Clear to auscultation. Percussion note normal. Chest symmetrical. HEART: S1, S2, no S3. No murmur. No cyanosis or clubbing. No ascites. Pulses: Dorsalis pedis and posterior tibial pulses +1 to +2 bilaterally. ABDOMEN: Soft. Nontender. Bowel sounds active. No CVA tenderness. No mass felt. EXTREMITIES: No edema. Full range of motion of all extremities, equal. NEUROLOGIC: No focal deficit. Cranial nerves II through XII are grossly intact. No headache, no double vision or headache. SKIN: Not dry. Intact. Turgor - normal. LYMPHATIC: No palpable lymph nodes/no lymphedema. MUSCULOSKELETAL: Normal joints with no swelling. Muscle tone is normal. LABORATORY: White count 14,000, hemoglobin 13.6, hematocrit 43, platelets 347. Sodium 142, potassium 4.3, BUN 22, creatinine 0.5, glucose 122. AST 75, ALT 96. Respiratory panel for PCR is negative. Lactic acid 0.76. Urine 1+ bacteria. Trace blood. She had a head CT on 10/21 at her ER visit which showed no acute process, did show bilateral sinusitis. Chest x-ray is normal, shows no acute process. ASSESSMENT: 1. Persistent headache. 2. Acute gastritis. 3. Dehydration. 4. Urinary tract infection. PLAN: 1. We will admit. 2. Routine telemetry orders. 3. CBC, CMP daily. 4. Zofran 4 mg IV q.6hr for nausea. 5. Normal Saline at 75 cc/hr. 6. Start Rocephin 1 gm IV daily. 7. Decadron 2 mg IM daily. 8. T4, TSH. 9. Urine sent for culture. 10. Continue all home medications. 11. Regular diet. 12. Will follow closely. TIME SPENT: More than 70 minutes. MTDD
[2020-10-25] MEDS: ROCEPHIN 1 GM/50 ML D5W 1 GM/50 ML BAG IV SCH (08:40)
--- NOTE | 2020-10-25 09:55 | CM.DICTOOL ---
ADMISSION: 10/22/20 21:30 DISCHARGE: OCTOBER 25, 2020 DATE OF SERVICE: 10/25/20 FINAL DIAGNOSIS HEADACHE- MIGRAINES, SINUSITIS, CELEXA WITHDRAWAL GENERALIZED WEAKNESS ABNORMAL U/A SINUSITIS GASTRITIS HX: LVH/HYPERTENSION DYSLIPIDEMIA BRONCHIAL ASTHMA GERD FATTY LIVER- COMPLICATION DISC DM 2 - A1C 5.7 CTS - BILATERAL VIT D DEFICIENCY B 12 DEFICIENCY GENERAL ANXIETY DISORDER DEPRESSION - CELEXA HELPS LUMBAGO WITH SCIATICA RIGHT SHOULDER PAIN HYPERPARATHYROIDISM HYPOTHYROIDISM B 12 DEFICIENCY AXILLARY LYMPHADENOPATHY - FOLLOWED WITH DR. BARBA NECK LYMPHADENOPATHY NO MEDIASTINAL OR HILAR MORBID OBESITY BILATERAL KNEE PAIN PROCEDURES: LYMPH NODES REMOVED - DR. HUANG LAST VITALS Temp Pulse Resp BP Pulse Ox 97.7 F 58 L 16 142/73 H 96 10/25/20 05:48 10/25/20 05:48 10/25/20 05:48 10/25/20 05:48 10/25/20 05:48 TAKE THESE MEDICATIONS AT HOME Acetaminophen (Acetaminophen 325 Mg Tablet) 650 mg PO Q8H PRN PRN Reason: Mild Pain Last Admin: 10/24/20 17:07 Dose: 650 mg Documented by: Amlodipine Besylate (Amlodipine Besylate 5 Mg Tablet) 5 mg PO DAILY [facility] Last Admin: 10/25/20 08:30 Dose: 5 mg Documented by: Atorvastatin Calcium (Atorvastatin Calcium 20 Mg Tablet) 40 mg PO DAILY [facility] Last Admin: 10/25/20 08:30 Dose: 40 mg Documented by: Calcium/Vitamin D (Calcium Carbonate/Vitamin D3 500 Mg/5 Mcg(200iu) 1 Each Tablet) 1 each PO DAILY [facility] Last Admin: 10/25/20 08:29 Dose: 1 each Documented by: Citalopram Hydrobromide (Citalopram Hydrobromide 20 Mg Tablet) 20 mg PO BID [facility] Last Admin: 10/25/20 08:29 Dose: 20 mg Documented by: Levothyroxine Sodium (Levothyroxine Sodium 100 Mcg Tablet) 100 mcg PO DAILY@0630 [facility] Last Admin: 10/25/20 05:34 Dose: 100 mcg Documented by: Lorazepam (Lorazepam 0.5 Mg Tablet) 0.5 mg PO BID PRN PRN Reason: Anxiety Meloxicam (Meloxicam 7.5 Mg Tablet) 15 mg PO MoWeFr@0900 [facility] Last Admin: 10/23/20 00:31 Dose: Not Given Documented by: Ondansetron HCl 4 mg PO Q8H PRN PRN Reason: Nausea / Vomiting Pantoprazole Sodium (Pantoprazole Sodium 40 Mg Tablet.) 40 mg PO DAILY@0630 [facility] Last Admin: 10/25/20 05:34 Dose: 40 mg Documented by: Fluticasone/Salmeterol (Fluticasone/Salmeterol 500/50 Diskus) 1 puff IH BID PRN PRN Reason: sob OMNICEF 300 MG PO BID X 10 DAYS ( START 10/26/2020) -- ( NEW) CLARITAN D 12 HOUR 1 TAB PO DAILY ( START 10/26/2020) -- ( NEW) FIORICET 1 - 2 TABLETS PO EVERY 6 HOURS PRN FOR HEADACHE ( START WHEN NEEDED ) -- ( NEW) FLONASE NASAL SPRAY 1 SPRAY EACH NOSTRIL DAILY -- ( HOME MED) HYDROCODONE-APAP 5/325 MG 1 TAB PO BID PRN -- ( HOME MED) VITAMIN B 12 (CYANOJECT-30) 1000 MCG IM DIRECTED -- (HOME MED ) MECLIZINE 25 MG PO TID PRN -- ( HOME MED) ALLERGIES tramadol [From [employer]] Adverse Reaction (Verified 10/21/20 16:50) DISCONTINUED MEDICATIONS NONE NEW PRESCRIPTIONS: 1). OMNICEF 300 MG PO BID X 10 DAYS 2). CLARITAN D 12 HOUR 1 TAB PO DAILY 3). FIORICET 1 - 2 TABLETS PO EVERY 6 HOURS PRN FOR HEADACHE SMOKING: N/A DISEASE SPECIFIC EDUCATION: UTI HEADACHE COVID 19 LAB REVIEW: 10/25/20 04:55 10/25/20 04:55 10/25/20 04:55: ESR 21 H 10/25/20 04:55: Sodium 140.5, Potassium 4.05, Chloride 103.9, Carbon Dioxide 31.4 H, Anion Gap 9.25, BUN 16.4, Creatinine 0.59 L, Estimated GFR (MDRD) 104.00, BUN/Creatinine Ratio 27.79, Glucose 105.9, Calcium 8.72, Total Bilirubin 0.37, AST 21.9, ALT 42.3 H, Alkaline Phosphatase 113.6, Total Protein 6.95, Albumin 3.68, Globulin 3.27, Albumin/Globulin Ratio 1.12 10/25/20 04:55: WBC 13.58 H, RBC 4.77, Hgb 12.5, Hct 38.8, MCV 81.3, MCH 26.2 L, MCHC 32.2, RDW Coeff of Estrellita 14.7, Plt Count 296, Immature Gran % (Auto) 0.6, Neut % (Auto) 69.3, Lymph % (Auto) 20.3, [place] % (Auto) 8.3, Eos % (Auto) 1.0, Baso % (Auto) 0.5, Neut # (Auto) 9.4 H, Lymph # (Auto) 2.8, [place] # (Auto) 1.1, Eos # (Auto) 0.1, Baso # (Auto) 0.1, Immature Gran # (Auto) 0.1 PLAN: DISCHARGE HOME TODAY: OCTOBER 25, 2020 LIVES WITH ACTIVITY: UP IN HOME WITH FREQUENT REST PERIODS, NO STRENUOUS ACTIVITIES UNTIL RELEASED BY CHANGE POSITIONS SLOWLY SOCIAL DISTANCING WHEN YOU HAVE TO LEAVE YOUR HOME. STAY HOME UNTIL DRLazaro FOLLOW UP VISIT IF POSSIBLE DIET: LOW SALT FOLLOW UP: SEE DR. PITTMAN/ DONNELL ALBRIGHT APRN/ SERA RUST APRN IN THE OFFICE ON FRIDAY, NOVEMBER 03 @ 1130. CODE STATUS: FULL CODE MISC: CHECK BLOOD PRESSURE PERIODICALLY AND REPORT CONCERNS TO YOUR DOCTOR MRS OLSEN IS ALERT AND ORIENTED X 4. LUNGS ARE CLEAR AND NO RESPIRATORY DIFFICULTIES. HAS SOME CLEAR SINUS DRAINAGE AT TIMES. STILL WAS HAVING A HEADACHE BETWEEN EYES AND LOWER FOREHEAD. FIORICET WAS INTRODUCED AND SHE STATED SHE THOUGHT IT DID HELP. SHE IS UP TOLERATED AND DOES NOT USE ANY ASSITIVE DEVICE. CONTINENT OF BOWEL AND BLADDER. NO BURNING UPON VOIDING NOTED OR REPORTED. LAST BM 10/22/2020. SKIN IS WARM, DRY AND INTACT. NO N/V. NUTRITIONAL AND FLUID INTAKE GOOD. SHE HAS BEEN AFEBRILE. NO ACUTE ANXIETY OR DEPRESSION. SHE STATED SHE WAS GOING TO CONTINUE HER CELEXA. SHE LIVES WITH HER AND ASSIST WITH GRANDCHILDREN. SARAHMD DONNELL WONG, DRYWALL CONTRACTORLucita RUST, DRYWALL CONTRACTOR
--- NOTE | 2020-10-27 07:57 | PN ---
DATE OF SERVICE: 10/24/20 SUBJECTIVE: 60-year-old white female hospitalized with generalized weakness, sinus type of headaches all started according to the patient with Covid-19 vaccine she had nearly 5 to 6 days ago. The patient's electrolytes and CBC are acceptable. She is feeling somewhat better. Dehydration status seems to have improved. The patient was seen and examined with the nurse practitioner. TIME SPENT: More than 30 minutes. Plan and coordination of the patient's care discussed in the presence of nurse. [place]
--- NOTE | 2020-10-27 09:01 | DS ---
DATE OF SERVICE: 10/25/20 FINAL DIAGNOSIS: 1. HEADACHE- MIGRAINES, SINUSITIS, CELEXA WITHDRAWAL 2. GENERALIZED WEAKNESS 3. ABNORMAL U/A 4. SINUSITIS 5. GASTRITIS HX: 6. LVH/HYPERTENSION 7. DYSLIPIDEMIA 8. BRONCHIAL ASTHMA 9. GERD 10. FATTY LIVER- COMPLICATION DISC 11. DM 2 - A1C 5.7 12. CTS - BILATERAL 13. VIT D DEFICIENCY 14. B12 DEFICIENCY 15. GENERAL ANXIETY DISORDER 16. DEPRESSION - CELEXA HELPS 17. LUMBAGO WITH SCIATICA 18. RIGHT SHOULDER PAIN 19. HYPERPARATHYROIDISM 20. HYPOTHYROIDISM 21. B12 DEFICIENCY 22. AXILLARY LYMPHADENOPATHY - FOLLOWED WITH DR. BARBA 23. NECK LYMPHADENOPATHY 24. NO MEDIASTINAL OR HILAR 25. MORBID OBESITY 26. BILATERAL KNEE PAIN PROCEDURES: 27. LYMPH NODES REMOVED - DR. HUANG LAST VITALS Temp Pulse Resp BP Pulse Ox 97.7 F 58 L 16 142/73 H 96 10/25/20 05:48 10/25/20 05:48 10/25/20 05:48 10/25/20 05:48 10/25/20 05:48 DISCHARGE INSTRUCTIONS: 1. DISCHARGE HOME TODAY: OCTOBER 25, 2020 LIVES WITH . 2. MD FOLLOW UP: SEE DR. PITTMAN/DONNELL ALBRIGHT APRN/SERA RUST APRN IN THE OFFICE ON FRIDAY, NOVEMBER 03 @ 1130. 3. MISC: CHECK BLOOD PRESSURE PERIODICALLY AND REPORT CONCERNS TO YOUR DOCTOR. MEDICATIONS AT DISCHARGE: Acetaminophen (Acetaminophen 325 Mg Tablet) 650 mg PO Q8H PRN PRN Reason: Mild Pain Last Admin: 10/24/20 17:07 Dose: 650 mg Documented by: Amlodipine Besylate (Amlodipine Besylate 5 Mg Tablet) 5 mg PO DAILY [facility] Last Admin: 10/25/20 08:30 Dose: 5 mg Documented by: Atorvastatin Calcium (Atorvastatin Calcium 20 Mg Tablet) 40 mg PO DAILY [facility] Last Admin: 10/25/20 08:30 Dose: 40 mg Documented by: Calcium/Vitamin D (Calcium Carbonate/Vitamin D3 500 Mg/5 Mcg(200iu) 1 Each Tablet) 1 each PO DAILY [facility] Last Admin: 10/25/20 08:29 Dose: 1 each Documented by: Citalopram Hydrobromide (Citalopram Hydrobromide 20 Mg Tablet) 20 mg PO BID [facility] Last Admin: 10/25/20 08:29 Dose: 20 mg Documented by: Levothyroxine Sodium (Levothyroxine Sodium 100 Mcg Tablet) 100 mcg PO DAILY@0630 [facility] Last Admin: 10/25/20 05:34 Dose: 100 mcg Documented by: Lorazepam (Lorazepam 0.5 Mg Tablet) 0.5 mg PO BID PRN PRN Reason: Anxiety Meloxicam (Meloxicam 7.5 Mg Tablet) 15 mg PO MoWeFr@0900 [facility] Last Admin: 10/23/20 00:31 Dose: Not Given Documented by: Ondansetron HCl 4 mg PO Q8H PRN PRN Reason: Nausea / Vomiting Pantoprazole Sodium (Pantoprazole Sodium 40 Mg Tablet.) 40 mg PO DAILY@0630 [facility] Last Admin: 10/25/20 05:34 Dose: 40 mg Documented by: Fluticasone/Salmeterol (Fluticasone/Salmeterol 500/50 Diskus) 1 puff IH BID PRN PRN Reason: sob OMNICEF 300 MG PO BID X 10 DAYS ( START 10/26/2020) -- ( NEW) CLARITIN D 12 HOUR 1 TAB PO DAILY ( START 10/26/2020) -- ( NEW) FIORICET 1 - 2 TABLETS PO EVERY 6 HOURS PRN FOR HEADACHE ( START WHEN NEEDED ) -- ( NEW) FLONASE NASAL SPRAY 1 SPRAY EACH NOSTRIL DAILY -- ( HOME MED) HYDROCODONE-APAP 5/325 MG 1 TAB PO BID PRN -- ( HOME MED) VITAMIN B 12 (CYANOJECT-30) 1000 MCG IM DIRECTED -- (HOME MED ) MECLIZINE 25 MG PO TID PRN -- ( HOME MED) NEW PRESCRIPTIONS: OMNICEF 300 MG PO BID X 10 DAYS CLARITIN D 12 HOUR 1 TAB PO DAILY FIORICET 1 - 2 TABLETS PO EVERY 6 HOURS PRN FOR HEADACHE DISCONTINUED MEDICATIONS: NONE DIET INSTRUCTIONS: LOW SALT ACTIVITY: UP IN HOME WITH FREQUENT REST PERIODS, NO STRENUOUS ACTIVITIES UNTIL RELEASED BY CHANGE POSITIONS SLOWLY SOCIAL DISTANCING WHEN YOU HAVE TO LEAVE YOUR HOME. STAY HOME UNTIL DRLazaro FOLLOW UP VISIT IF POSSIBLE SMOKING: N/A DISEASE SPECIFIC EDUCATION: UTI HEADACHE COVID 19 HOSPITAL COURSE: This is a white female who was admitted through the emergency room with severe headache and generalized weakness. She had an abnormal UA which indicated that she may have a UTI. Urine culture was negative for growth. CT of the brain from 10/23 when she had gone to the emergency room showed that she did have sinusitis. No CT was done on 10/25. She was admitted, placed on Rocephin 1 gm IV daily. After being admitted going through her medications, it was learned that she had abruptly stopped her Celexa. She had also had the first Covid vaccination one week prior when her headache began. She was also experiencing nausea and vomiting. Kidney function was slightly elevated. She was admitted, placed on NS at 75 cc/hr. She was started on Decadron 2 mg IM daily. Over the course of the next several days, headache has improved. Also started her on Claritin D to be taken in the morning as I do believe her headaches are a combination of migraines, anxiety, Celexa withdrawal and then coupled with sinusitis. The headache may have been precipitated with her first Covid vaccine. I do believe that she is okay to receive her second Covid vaccine and this has been instructed to her. We are going to give her Fioricet one to two tablets q.6hr p.r.n. for headache. She did not receive any relief with Toradol. Her nausea was only made worse with Morphine. Fioricet seemed to help. Will also continue on Claritin D to be taken once daily for the next two weeks. She will also be discharged on Omnicef 300 b.i.d. for the next 10 days and continue her Flonase for sinusitis. She will followup with us in the office next week. Will discharge her in stable condition. TIME SPENT: More than 60 minutes. [place]
--- NOTE | 2020-11-01 14:00 | PN ---
DATE OF SERVICE: 10/25/20 SUBJECTIVE: The patient was seen and examined with the nurse practitioner. The patient's condition is stable. She is improving. Her headache is much less. She was given Percocet which seems to have helped. The patient is going to be discharged home. Headache was likely a combination of migraine which could have started along with Covid vaccine that has put her into that situation with Celexa withdrawals. All could have contributed toward her headache. Cardiovascular status and the rest of the physical examination is negative. TIME SPENT: More than 30 minutes. Plan and coordination of the patient's care discussed in the presence of nurse. [place]
--- NOTE | 2020-11-01 14:01 | PN ---
BILLING 10/22/20 ADMISSION DAY LEVEL 5 10/23/20 INTERMEDIATE 10/24/20 INTERMEDIATE 10/25/20 FINAL DAY - D IN DISCHARGE MTDD
== END 2020-10-25 11:23 | disposition home or self-care (01) | DRG 392 ==
LOC: ED 10:43 → MEDSURG A 21:30
PROVIDERS: ADMIT Internal Medicine; ATTEND Internal Medicine